=== PATIENT | female | born 1980 | race African-American/Black ===

== ENCOUNTER → 2021-04-11 16:46 | Outpatient (CLI) | payer OTHER, SELFPAY ==
--- NOTE | 2021-04-11 16:49 | DI.MRI.S_ITS ---
PROCEDURE: MR TMJ WO CON INDICATIONS: Jaw pain TECHNIQUE: Axial T1 spin echo, coronal and sagittal PD fast spin echo through the temporomandibular joints, in both the closed- and open-mouth positions. COMPARISON: None. FINDINGS: Image quality: Excellent. Right: Joint is normally aligned on closed and open-mouth positioning. Articular disk demonstrates normal location and morphology. No bony erosions or osteophytes. Left: Joint is normally aligned on closed and open-mouth positioning. Articular disk demonstrates normal location and morphology. No bony erosions or osteophytes. Mucous retention cyst versus polyps noted in the visualized left maxillary sinus. IMPRESSION: Normal examination. Dictated by: Becca Luna MD, PhD on 04/12/2021 at 7:54 Approved by: Becca Luna MD, PhD on 04/12/2021 at 7:57
== END ==
PROVIDERS: Referring Provider Dentist Oral and Maxillofacial Surgery; Visit Provider Dentist Oral and Maxillofacial Surgery
DX: R68.84 Jaw pain (principal)
CPT/HCPCS: 70336